=== PATIENT | male | born 1960 | race Caucasian/White ===

== ENCOUNTER 2020-03-31 08:41 | Emergency (ER) | payer SELFPAY ==
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
== END 2020-03-31 10:10 | disposition home or self-care (01) ==
LOC: MW.ED 08:41
DX: B34.9 Viral infection, unspecified (principal); R19.7 Diarrhea, unspecified; E11.9 Type 2 diabetes mellitus without complications; Z79.84 Long term (current) use of oral hypoglycemic drugs; Z20.828 Contact with and (suspected) exposure to other viral communicable diseases
CPT/HCPCS: 99282; 99284; U0002